=== PATIENT | male | born 1960 | race Caucasian/White ===

== ENCOUNTER 2022-07-03 08:57 | Outpatient (CLI) | payer BC, SELFPAY ==
[2022-07-03 15:14] LABS: Albumin* 4.7 g/dL (3.3-5.0); Chloride* 101 mmol/L (96-114); Sodium* 138 mmol/L (135-149)
[2022-07-03 15:15] LABS: Potassium* 4.8 mmol/L (3.6-5.1)
[2022-07-03 15:17] LABS: Alanine Aminotransferase* 21 U/L (4-50); Alkaline Phosphatase* 69 U/L (40-150); Aspartate Amino Transferase* 30 U/L (12-35); Bilirubin Total* 0.5 mg/dL (0.1-1.5); Blood Urea Nitrogen* 24 mg/dL (7-30); Carbon Dioxide* 31 mmol/L (20-32); Cholesterol* 239 mg/dL (90-199); Creatinine* 1.1 mg/dL (0.5-1.5); Estimated Glomerular Filt Rate 77 ml/min; Glucose* 116 mg/dL (60-115); Total Protein* 7.3 g/dL (6.0-8.3); Triglycerides* 114 mg/dL (40-149)
[2022-07-03 15:18] LABS: Calcium* 10.1 mg/dL (8.4-10.6); HDL Cholesterol* 66 mg/dL (>=40); LDL Cholesterol Calculated 150 mg/dL (<100)
== END 2022-07-03 08:58 | disposition home or self-care (01) ==
PROVIDERS: PCP Family Medicine; Visit Provider Physician Assistant Medical
DX: Z00.00 Encounter for general adult medical examination without abnormal findings (principal); Z13.6 Encounter for screening for cardiovascular disorders; Z12.5 Encounter for screening for malignant neoplasm of prostate
CPT/HCPCS: 80053; 80061; 84153

== ENCOUNTER 2024-10-27 08:12 | Outpatient (CLI) | payer BC, SELFPAY | END 2024-10-27 08:13 | disposition home or self-care (01) | LOC: NFLDREF 10-29 03:19 | PROVIDERS: PCP Family Medicine; Referring Provider Family Medicine; Visit Provider Family Medicine | DX: Z13.228 Encounter for screening for other metabolic disorders (principal); Z13.6 Encounter for screening for cardiovascular disorders; Z12.5 Encounter for screening for malignant neoplasm of prostate | CPT/HCPCS: 80053; 80061; G0103 ==

== ENCOUNTER 2024-10-31 08:12 | Outpatient (CLI) | payer BC, SELFPAY | END 2024-10-31 08:13 | disposition home or self-care (01) | LOC: NFLDREF 11-06 12:26 | PROVIDERS: PCP Family Medicine; Referring Provider Family Medicine; Visit Provider Family Medicine | DX: R79.89 Other specified abnormal findings of blood chemistry (principal) | CPT/HCPCS: 84403 ==

== ENCOUNTER 2025-08-23 09:06 | Outpatient (CLI) | payer BC, SELFPAY | END 2025-08-23 09:07 | disposition home or self-care (01) | LOC: LKVREF 09:07 | PROVIDERS: PCP Family Medicine; Visit Provider Family Medicine | DX: R79.89 Other specified abnormal findings of blood chemistry (principal); Z86.39 Personal history of other endocrine, nutritional and metabolic disease | CPT/HCPCS: 80048; 84153 ==